=== PATIENT | female | born 1965 | race Caucasian/White ===

== ENCOUNTER 2016-12-01 01:12 | Emergency (ER) | payer MEDICARE, MEDICAID ==
[2016-12-01 01:16] VITALS: BP 122/85; PULSE 74; RESP 16; TEMP 97.5; O2SAT 96
== END 2016-12-01 01:35 | disposition home or self-care (01) | DRG 392 ==
LOC: ED 01:12
DX: K52.9 Noninfective gastroenteritis and colitis, unspecified (principal)
CPT/HCPCS: 99282